=== PATIENT | male | born 1985 | race Caucasian/White ===

== ENCOUNTER → 2018-01-11 | Outpatient (REF) | payer OTHER ==
[2018-01-11 09:42] LABS: SEMEN VOLUME QNS ml (4.0-5.0)
== END ==
LOC: M LAB REF 09:30
DX: N46.9 Male infertility, unspecified (principal)

== ENCOUNTER → 2018-01-14 | Outpatient (REF) | payer OTHER | LOC: M LAB REF 10:58 | DX: N46.9 Male infertility, unspecified (principal) ==

== ENCOUNTER → 2018-01-19 | Outpatient (REF) | payer OTHER ==
[2018-01-19 12:59] LABS: SEMEN APPEARANCE OPAQUE (OPAQUE)
[2018-01-19 13:00] LABS: % NORMAL FORMS 19 % (>=4); IMMOTILITY 24 %; NON PROGRESSIVE MOTILITY (c) 11 %; PROGRESSIVE MOTILITY (a) 65 % (>=32); SEMEN VISCOSITY LIQUID (LIQUID); SEMEN pH 7.5 (7.0-8.0); SPERM CONCENTRATION 128.5 M/ml (>=15.0); TOTAL MOTILITY 76 % (>=40); WBC CONCENTRATION <=1 M/ml (<=1 M/ml)
[2018-01-19 13:01] LABS: SPERM# 128.5 M/Ejac (>=39); TOTAL PROGRESSIVE SPERM 84.1 M/Ejac.
[2018-01-24 13:20] LABS: TOTAL FUNCTIONAL 31.7 M/Ejac.
== END ==
LOC: M LAB REF 12:55
DX: N46.9 Male infertility, unspecified (principal)

== ENCOUNTER → 2018-02-14 | Outpatient (REF) | payer OTHER ==
[2018-02-14 11:04] LABS: IMMOTILITY 25 %; NON PROGRESSIVE MOTILITY (c) 10 %; PROGRESSIVE MOTILITY (a) 65 % (>=32); SEMEN APPEARANCE OPAQUE (OPAQUE); SEMEN VISCOSITY LIQUID (LIQUID); SEMEN VOLUME 1.2 ml (4.0-5.0); SPERM CONCENTRATION 122.3 M/ml (>=15.0); TOTAL MOTILITY 75 % (>=40); WBC CONCENTRATION >1 M/ml (<=1 M/ml)
[2018-02-14 11:05] LABS: % NORMAL FORMS 18 % (>=4); APPEARANCE, URINE HAZY (CLEAR); BACTERIA, URINE AUTO NEGATIVE (NEGATIVE); BILIRUBIN, URINE AUTO NEGATIVE (NEGATIVE); BLOOD, URINE BLOOD NEGATIVE (NEGATIVE); CALCIUM OXALATE CRYSTALS MODERATE; COLOR, URINE AMBER (YELLOW); GLUCOSE, URINE (UA) AUTO NEGATIVE (NEGATIVE); KETONE, URINE AUTO TRACE mg/dL (NEGATIVE); LEUKOCYTE ESTERASE, URINE AUTO NEGATIVE (NEGATIVE); MUCUS, URINE SMALL (NEGATIVE); NITRITE, URINE AUTO NEGATIVE (NEGATIVE); PROTEIN, URINE AUTO 1+ mg/dL (NEGATIVE); RBC, URINE AUTO 0 /HPF (0-3); SPECIFIC GRAVITY URINE AUTO 1.031 (1.002-1.035); SPERM# 146.8 M/Ejac (>=39); SQUAMOUS EPITHELIAL CELL UR AU 0 /HPF (0-6); TOTAL FUNCTIONAL 34.3 M/Ejac.; TOTAL PROGRESSIVE SPERM 94.7 M/Ejac.; WBC, URINE AUTO 0 /HPF (0-3)
== END ==
LOC: M SMT 10:43
DX: N46.9 Male infertility, unspecified (principal)